=== PATIENT | female | born 1935 | race Caucasian/White ===

== ENCOUNTER 2016-10-03 09:59 | Outpatient (CLI) | payer OTHER, MEDICARE ==
--- NOTE | 2016-10-03 11:05 | DIAGNOSTIC IMAGING REPORT ---
PROCEDURE: DEXA BONE DENSITY STUDY CLINICAL INDICATION: OSTEOPENIA COMPARISON: None. FINDINGS: LUMBAR SPINE: Bone mineral density 1.195 g/cm2, T score 1.6 normal LEFT radius: Bone mineral density 0.592 g/cm2, T score -1.6 osteopenia LEFT FEMORAL NECK: Bone mineral density 0.912 g/cm2, T score 0.6 normal FRACTURE RISK CALCULATION ( when applicable): 10-year fracture risk of a major osteoporotic fracture and of a hip fracture not reported (T score greater or equal to -1.0 to: NORMAL) (T score from -1.1 to -2.4: OSTEOPENIA) (T score ess than or equal to -2.5: OSTEOPOROSIS) IMPRESSION: 1. Osteopenia radius, normal lumbar spine and femoral neck
== END 2016-10-03 23:00 ==
LOC: XR SRH 09:59
DX: M85.89 Other specified disorders of bone density and structure, multiple sites (principal)